=== PATIENT | male | born 1955 | race Asian ===

== ENCOUNTER 2019-09-21 11:42 | Emergency (ER) | payer OTHER ==
[~2019-09-21] VITALS: Ht 177.8 cm; Wt 61.8 kg
--- NOTE | 2019-09-21 12:18 | NUR ---
JOSE RN ASSISTING PRIMARY RN ADRIANA WITH PT CHECK IN. 64 Y/O M AMBULATORY TO ROOM WITH STEADY GAIT. PRESENTS STATING "MY STOMACH HAS BEEN SWOLLEN FOR 10 DAYS, NO TROUBLE GOING TO THE BATHROOM, NO BLOOD IN STOOL OR MY URINE, NO PROBLEMS THERE, JUST A SWOLLEN STOMACH, NO PAIN EITHER. THEN I'VE BEEN FEELING TIRED AND WEAK WITH WALKING ABOUT 200 YARDS, SHORT OF BREATH EVEN, MY HEART RATE FEELS LIKE IT'S BEEN HIGH. I DID FALL ABOUT 3 WEEKS AGO AND HURT MY BACK AND THEN NOTICED MY STOMACH SWELLING NOT TOO LONG AFTER." DENIES ANY PAIN, ABD PAIN, CP, N/V/D, CONSTIPATION. DENIES HITTING HEAD OR LOC WITH FALL 3 WEEKS AGO. CONT PULSE OX, BP, CARDIAC MONITORS APPLIED. VSS. SR ON MONITOR. A&OX4. CALL LIGHT IN REACH. FALL PRECAUTIONS IN PLACE. SIDE RAILS UPX2. AWAITING EVAL BY ERP. FAMILY AT BEDSIDE.
--- NOTE | 2019-09-21 12:22 | NUR ---
JOSE RN, BEDSIDE REPORT AND CARE TO PRIMARY RN ADRIANA.
[2019-09-21] MEDS ORDERED: SIMV20TA3 PO (12:24)
[2019-09-21] MEDS ORDERED: METF500T17 PO (12:24)
[2019-09-21] MEDS ORDERED: ENAL2.5T PO (12:24)
--- NOTE | 2019-09-21 12:58 | NUR ---
PT UPRIGHT ON GURNEY AWAKE & CALM, NAD, RESPONDS APPROP TO STAFF, COMFORT MEASURES PROVIDED, SON AT BS, CALL LIGHT WITHIN REACH.
[2019-09-21 13:22] LABS: BASOPHILS # (AUTO) 0.12 x10^3/uL (0-0.1); BASOPHILS % (AUTO) 2 % (0-1); EOSINOPHILS # (AUTO) 0.13 x10^3/uL (0-0.4); EOSINOPHILS % (AUTO) 2 % (1-7); LYMPHOCYTES # (AUTO) 1.42 x10^3/uL (1-3.4); LYMPHOCYTES % (AUTO) 20 % (22-44); MD NO; MEAN CORPUSCULAR HEMOGLOBIN 33.1 pg (27.5-34.5); MEAN CORPUSCULAR HGB CONC 33.3 g/dL (33.2-36.2); MEAN CORPUSCULAR VOLUME 99.3 fL (81-97); MEAN PLATELET VOLUME 7.8 fL (7.4-10.4); MONOCYTES # (AUTO) 0.83 x10^3/uL (0.2-0.8); MONOCYTES % (AUTO) 12 % (2-9); NEUTROPHILS # (AUTO) 4.47 x10^3/uL (1.8-6.8); NEUTROPHILS % (AUTO) 64 % (42-75); PLATELET COUNT 588 x10^3/uL (130-400); RED BLOOD COUNT 3.75 x10^6/uL (4.38-5.82); RED CELL DISTRIBUTION WIDTH 16.3 % (9.4-14.8)
[2019-09-21 13:23] LABS: ALBUMIN 3.5 g/dL (3.4-5.0); ANION GAP 7 mmol/L (5-15); CALCIUM 9.3 mg/dL (8.5-10.1); CHLORIDE 96 mmol/L (98-107)
[2019-09-21 13:25] LABS: INTERNATIONAL NORMALIZED RATIO 0.99 (0.93-1.1); PROTHROMBIN TIME 10.4 Seconds (9.6-11.5)
[2019-09-21 13:28] LABS: ALANINE AMINOTRANSFERASE 70 U/L (12-78); ALKALINE PHOSPHATASE 84 U/L (45-117); BILIRUBIN,TOTAL 0.4 mg/dL (0.2-1.0); CREATININE 0.85 mg/dL (0.7-1.3); TOTAL PROTEIN 7.7 g/dL (6.4-8.2)
--- NOTE | 2019-09-21 13:46 | NUR ---
CT WAITING FOR IV ACCESS
--- NOTE | 2019-09-21 13:47 | NUR ---
BREAK RN: VOIDED URINE SPECIMEN PROVIDED BY PT; WILL BE WALKED TO LAB. PT SITTING ON BED, TALKING W/ SON.
[2019-09-21 14:05] VITALS: BP 107/66
--- NOTE | 2019-09-21 14:05 | NUR ---
PT REMAINS UPRIGHT ON GURNEY AWAKE & COMFORTABLE, NAD, RESPONDS APPROP TO STAFF, COMFORT MEASURES PROVIDED, CALL LIGHT WITHIN REACH.
[2019-09-21 14:13] LABS: MICROSCOPIC NOT IND
[2019-09-21 14:18] LABS: CULTURE INDICATED? NO
[2019-09-21] MEDS ORDERED: OMNIPAQUE 350 MG/ML, 100ML BOTTLE ONE (14:44)
--- NOTE | 2019-09-21 15:03 | NUR ---
PT UPRIGHT ON GURNEY AWAKE & COMFORTABLE, NAD, RESPONDS APPROP TO STAFF, COMFORT MEASURES PROVIDED, CALL LIGHT WITHIN REACH.
--- NOTE | 2019-09-21 15:58 | NUR ---
TASK RN: PT AWARE OF DC PLAN. DRESSED. PIV REMOVED.
== END 2019-09-21 16:07 | disposition home or self-care (01) ==
LOC: ED 15:14
DX: R06.00 Dyspnea, unspecified (principal); K76.0 Fatty (change of) liver, not elsewhere classified; N28.1 Cyst of kidney, acquired; R14.0 Abdominal distension (gaseous); I10 Essential (primary) hypertension; E11.9 Type 2 diabetes mellitus without complications; E78.5 Hyperlipidemia, unspecified
CPT/HCPCS: 36415; 71045; 74177; 80053; 80307; 81003; 83690; 85025; 85610; 93005; 99284; Q9967